=== PATIENT | male | born 1995 | race Caucasian/White ===

== ENCOUNTER → 2018-11-21 | Outpatient (CLI) | payer BC ==
[~2018-11-21] MED LIST: GADOBUTROL 7.5 MMOL/7.5 ML (GADAVIST) VIAL IV ONE; IOHEXOL 300 MG/ML 50 ML (OMNIPAQUE 300) VIAL IV ONE; LIDOCAINE 1% INJ 20 ML 20 ML VIAL INJ ONE; LIDOCAINE 1% INJ 20 ML 20 ML VIAL ONE
--- NOTE | 2018-11-21 12:00 | Diagnostic Imaging Report ---
INDICATION: Left shoulder pain. Patient was brought to the fluoroscopy suite and placed on table in the supine position. The skin of the left shoulder was prepped and draped in usual sterile fashion. A small amount of 1% lidocaine was utilized for local anesthesia. A 21-gauge needle was advanced into the left shoulder at the rotator interval. 50 mL solution of iodinated contrast, normal saline, and gadolinium was injected under fluoroscopic observation. The needle was withdrawn, and hemostasis was obtained. Patient tolerated the procedure well and was sent to MRI in satisfactory condition. Total of 32 seconds of fluoroscopy was utilized. IMPRESSION: Successful left shoulder injection of gadolinium contrast solution, using fluoroscopy. Dictated by: Dictated on workstation # [id number]
--- NOTE | 2018-11-21 14:24 | Diagnostic Imaging Report ---
PROCEDURE: MRI left joint upper extremity with contrast. TECHNIQUE: Multiplanar, multisequence MRI of the left shoulder was performed following intra-articular injection of a gadolinium-based contrast mixture. INDICATION: Left shoulder pain, decreased range of motion, popping. COMPARISON: None. FINDINGS: There is motion artifact on multiple sequences. No acute fracture is seen in the right shoulder. Alignment appears normal. The joint spaces distended with contrast. There is no high-grade partial-thickness or full-thickness rotator cuff tear. Minimal fluid at the subacromial-subdeltoid bursa may be due to local anesthetic injection. There is no atrophy of the rotator cuff musculature. The long head of the biceps tendon appears normal in course and signal. No discrete tear is seen in the glenoid labrum. No para-labral cysts are seen. The acromion has a curved undersurface without hooking. The coracoclavicular and coracoacromial ligaments are intact. The soft tissues about the left shoulder are otherwise unremarkable. IMPRESSION: 1. No discrete tear is seen of the rotator cuff or glenoid labrum. There is significant motion artifact on multiple sequences. Dictated by: Dictated on workstation # [id number]
== END ==
LOC: RAD 10:10
PROVIDERS: ATTEND Nurse Practitioner
DX: S43.432A Superior glenoid labrum lesion of left shoulder, initial encounter (principal)
CPT/HCPCS: 23350; 73040; 73222